=== PATIENT | male | born 1985 | race Caucasian/White ===

== ENCOUNTER 2022-10-29 18:03 | Emergency (ER) | payer OTHER ==
[2022-10-29] MEDS ORDERED: NA CHLORIDE 0.9% 1,000 ML ONE (18:41)
[2022-10-29 18:49] LABS: Absolute Lymphocytes (CBC) 2.4 K/uL (0.7-4.9); Hematocrit 47.1 % (39.6-49.0); Lymphocytes % 24.4 % (15.3-44.8); MCV 92.5 fL (80-100); MPV 6.9 fL (7.6-11.3); RBC Red Blood Cell Count 5.09 M/uL (4.33-5.43)
[2022-10-29 19:06] LABS: Albumin 3.9 g/dL (3.4-5.0); Bilirubin Total 0.5 mg/dL (0.2-1.0); Potassium 3.4 mEq/L (3.5-5.1)
--- NOTE | 2022-10-29 20:07 | RAD REPORT ---
EXAM DESCRIPTION: CT - Head Brain Wo Cont - 10/29/2022 7:33 pm CLINICAL HISTORY: HEADACHE COMPARISON: No comparisons TECHNIQUE: Noncontrast head CT images were obtained without IV contrast. Multiplanar reformats were generated and reviewed. All CT scans are performed using dose optimization technique as appropriate and may include automated exposure control or mA/KV adjustment according to patient size. FINDINGS: No intracranial hemorrhage, mass, or edema. Midline structures are unremarkable. Normal ventricular caliber for age. Munguia-white matter differentiation is preserved, without evidence of acute infarct. No abnormal extra- axial fluid collections. Right maxillary and right mastoid air cell opacification. No acute bony findings. IMPRESSION: No evidence of an acute intracranial process. Right maxillary and right mastoid air cell opacification. Please correlate clinically for evidence of acute sinusitis.
--- NOTE | 2022-10-29 20:17 | RAD REPORT ---
EXAM DESCRIPTION: CT - Abdomen Pelvis W Contrast - 10/29/2022 7:38 pm CLINICAL HISTORY: ABD PAIN COMPARISON: No comparisons TECHNIQUE: Thin cut axial CT imaging of the abdomen and pelvis was performed following intravenous a dministration of 95 mL Isovue 300. Multiplanar reformats were generated and reviewed. All CT scans are performed using dose optimization technique as appropriate and may include automated exposure control or mA/KV adjustment according to patient size. FINDINGS: No suspicious findings in the lung bases. The liver, spleen, and pancreas show no suspicious findings. Gallbladder and biliary tree are also wi thout suspicious finding. Symmetric renal function is seen with no hydronephrosis or suspicious renal mass. No dilated bowel loops or bowel wall thickening. No free air, free fluid or inflammatory stranding. N o hernia, mass or bulky lymphadenopathy. The urinary bladder is without significant finding. No suspicious bony findings. IMPRESSION: No acute intra-abdominal process.
--- NOTE | 2022-10-29 21:05 | ER ---
Nurse's Notes [facility] Name: Chi Seaman Age: 36 yrs Sex: Male : 1985 Arrival Date: 10/29/2022 Time: 18:03 Bed 5 Private MD: Diagnosis: Acute suppurative otitis media-right;Diarrhea, unspecified;Cough;Sinusitis Presentation: 10/29 18:12 Chief complaint: Spouse and/or significant other states: Hx of Right ear issues; pain vg1 and drainage with odor x 2 days, pt states dizziness and loss of hearing. Also stated N/V/D, states "i think its bc [place] Coronavirus screen: Vaccine status: Patient reports being unvaccinated. Client denies travel out of the [place] in the last 14 days. Ebola Screen: Patient negative for fever greater than or equal to 101.5 degrees Fahrenheit, and additional compatible Ebola Virus Disease symptoms Patient denies exposure to infectious person. Patient denies travel to an Ebola-affected area in the 21 days before illness onset. Initial Sepsis Screen: Does the patient meet any 2 criteria? HR > 90 bpm. Does the patient have a suspected source of infection? No. Patient's initial sepsis screen is negative. Risk Assessment: Do you want to hurt yourself or someone else? Patient reports no desire to harm self or others. Onset of symptoms was October 27, 2022. 18:12 Method Of Arrival: Ambulatory vg1 18:12 Acuity: QUINN 3 vg1 Triage Assessment: 18:15 General: Appears in no apparent distress. uncomfortable, Behavior is cooperative. Pain: vg1 Complains of pain in right ear Pain currently is 10 out of 10 on a pain scale. EENT: Reports difficulty swallowing pain in right ear Right ear drainage . Historical: - Allergies: 18:15 No Known Allergies; vg1 - PMHx: 18:15 PTSD; TBI; Nerve Damage; Chronic pain; vg1 - Immunization history:: Client reports having NOT received the Covid vaccine. - Social history:: Smoking status: Patient reports the use of cigarette tobacco products, smokes one pack cigarettes per day. Screenin:15 [facility] ED Fall Risk Assessment (Adult) History of falling in the last 3 months, bp including since admission No falls in past 3 months (0 pts). Abuse screen: Denies threats or abuse. Denies injuries from another. Nutritional screening: No deficits noted. Tuberculosis screening: No symptoms or risk factors identified. Assessment: 18:15 General: SEE TRIAGE NOTE. bp 19:22 Reassessment: Patient appears in no apparent distress at this time. Patient and/or bp family updated on plan of care and expected duration. Pain level reassessed. Patient is alert, oriented x 3, equal unlabored respirations, skin warm/dry/pink. 20:29 Reassessment: Patient appears in no apparent distress at this time. Patient and/or bp family updated on plan of care and expected duration. Pain level reassessed. Patient is alert, oriented x 3, equal unlabored respirations, skin warm/dry/pink. 21:15 Reassessment: Patient appears in no apparent distress at this time. Patient and/or bp family updated on plan of care and expected duration. Pain level reassessed. Patient is alert, oriented x 3, equal unlabored respirations, skin warm/dry/pink. Vital Signs: 18:12 BP 146 / 102; Pulse 108; Resp 18; Temp 98.4(O); Pulse Ox 96% on R/A; Height 5 ft. 9 in. vg1 ; Pain 10/10; 19:22 BP 127 / 76; Pulse 91; Resp 16; Pulse Ox 98% ; bp 20:29 BP 112 / 78; Pulse 89; Resp 16; Pulse Ox 99% ; bp 18:12 Pain Scale: Adult vg1 ED Course: 18:05 Patient arrived in ED. ts1 18:08 Camron Salinas PA is PHCP. cp 18:08 Camron Colon MD is Attending Physician. cp 18:15 Triage completed. vg1 18:15 Arm band placed on. vg1 18:15 Patient has correct armband on for positive identification. Bed in low position. Call bp light in reach. Side rails up X2. 18:27 Paxton Hernandez, BILLY is Primary Nurse. bp 18:41 Inserted saline lock: 20 gauge in right forearm, using aseptic technique. Blood bp collected. 19:35 CT Head Brain wo Cont In Process Unspecified. EDMS 19:40 CT Abd/Pelvis - IV Contrast Only In Process Unspecified. EDMS 20:25 Troponin HS Sent. bp 21:07 XRAY Chest (1 view) In Process Unspecified. EDMS 21:15 No provider procedures requiring assistance completed. IV discontinued, intact, bp bleeding controlled, No redness/swelling at site. Pressure dressing applied. Administered Medications: 18:41 Drug: NS 0.9% IV 1000 ml Route: IV; Rate: 1 bolus; Site: right forearm; bp 21:15 Drug: Ibuprofen PO 800 mg Route: PO; bp 21:15 Follow up: Response: Medication administered at discharge. bp 21:15 Drug: HYDROcodone-acetaminophen PO 5 mg-325 mg 1 tabs Route: PO; bp 21:15 Follow up: Response: Medication administered at discharge. bp Medication: 18:15 VIS not applicable for this client. bp Outcome: 21:05 Discharge ordered by MD. cp 21:15 Discharged to home ambulatory, with family. bp 21:15 Condition: stable 21:15 Discharge instructions given to patient, Instructed on discharge instructions, follow up and referral plans. medication usage, Demonstrated understanding of instructions, follow-up care, medications, Prescriptions given X 3. 21:16 Patient left the ED. bp Signatures: Dispatcher [employer] EDMS Camron Slainas PA PA cp Peltier, Brian, RN RN bp Lila Funes, RN RN vg1 Addis Ramos, PAS PAS ts1
--- NOTE | 2022-10-29 21:05 | EDPHYS ---
Physician Documentation [facility] Name: Chi Seaman Age: 36 yrs Sex: Male : 1985 Arrival Date: 10/29/2022 Time: 18:03 Bed 5 Private MD: ED Physician Camron Colon HPI: 10/29 18:35 This 36 yrs old Male presents to ER via Ambulatory with complaints of Ear Pain, cp Nausea/Vomiting/Diarrhea. 18:35 The patient presents with drainage, that is purulent. The complaints affect the right cp ear. Onset: The symptoms/episode began/occurred for over 1 month. 18:35 Patient is a 36-year-old male with a history of PTSD, TBI and chronic pain who presents cp to the emergency department with multiple complaints. He is accompanied by his who expressed concern that patient has had chronic problems with his right ear with drainage over the last several days, pain, headache. Patient also reports that he has been seen at the CT and was sent to the emergency room for a CT of his abdomen due to his history of diarrhea for the past several months. Patient reports mild abdominal pain today and diarrhea. Patient denies weight loss, and/or fever blood in stools. Patient is also requesting a CT of the head due to the chronic problems with his ear. Historical: - Allergies: 18:15 No Known Allergies; vg1 - PMHx: 18:15 PTSD; TBI; Nerve Damage; Chronic pain; vg1 - Immunization history:: Client reports having NOT received the Covid vaccine. - Social history:: Smoking status: Patient reports the use of cigarette tobacco products, smokes one pack cigarettes per day. ROS: 18:40 Constitutional: Negative for body aches, chills, fever, poor PO intake. cp 18:40 Eyes: Negative for injury, pain, redness, and discharge. cp 18:40 ENT: Positive for drainage from ear(s), ear pain, Negative for sore throat, difficulty swallowing, difficulty handling secretions. 18:40 Cardiovascular: Negative for chest pain, edema, palpitations. 18:40 Respiratory: Positive for cough, with no reported sputum, Negative for shortness of breath, wheezing. 18:40 Abdomen/GI: Positive for abdominal pain, nausea, vomiting, and diarrhea, Negative for anorexia, black/tarry stool, rectal bleeding. 18:40 Back: Negative for pain at rest, pain with movement. cp 18:40 : Negative for urinary symptoms, flank pain, testicular pain 18:40 Skin: Negative for rash. 18:40 Neuro: Positive for headache, Negative for altered mental status, numbness, syncope, weakness. 18:40 All other systems are negative. Exam: 18:45 Constitutional: The patient appears in no acute distress, alert, awake, cp non-diaphoretic, non-toxic, well developed, well nourished. 18:45 Head/Face: Normocephalic, atraumatic. cp 18:45 Eyes: Periorbital structures: appear normal, Conjunctiva: normal, no exudate, no injection, Sclera: no appreciated abnormality, Lids and lashes: appear normal, bilaterally. 18:45 ENT: External ear(s): are unremarkable, Ear canal(s): purulent discharge, that is minimal, in the right canal, TM's: rupture, on the right, with purulent discharge, Examination of the other ear shows no obvious abnormality, Nose: is normal, Mouth: Lips: moist, Oral mucosa: pink and intact, moist, Posterior pharynx: is normal, airway is patent, no erythema, no exudate. 18:45 Neck: ROM/movement: is normal, is supple, without pain, no range of motions limitations, no meningismus, no nuchal rigidity, Lymph nodes: no appreciated lymphadenopathy. 18:45 Chest/axilla: Inspection: normal, Palpation: is normal, no crepitus, no tenderness. 18:45 Cardiovascular: Rate: tachycardic, Rhythm: regular, Edema: is not appreciated, JVD: is not appreciated. 18:45 Respiratory: the patient does not display signs of respiratory distress, Respirations: normal, no use of accessory muscles, no retractions, labored breathing, is not present, Breath sounds: are clear throughout, no decreased breath sounds, no stridor, no wheezing. 18:45 Abdomen/GI: Inspection: abdomen appears normal, Bowel sounds: active, all quadrants, Palpation: abdomen is soft and non-tender, in all quadrants, rebound tenderness, is not appreciated, involuntary guarding, is not appreciated. 18:45 Back: CVA tenderness, is absent. 18:45 Neuro: Orientation: to person, place \T\ time. Mentation: able to follow commands, Motor: moves all fours, strength is normal, Gait: is steady. 20:23 ECG was reviewed by the Attending Physician. cp Vital Signs: 18:12 BP 146 / 102; Pulse 108; Resp 18; Temp 98.4(O); Pulse Ox 96% on R/A; Height 5 ft. 9 in. vg1 ; Pain 10/10; 19:22 BP 127 / 76; Pulse 91; Resp 16; Pulse Ox 98% ; bp 20:29 BP 112 / 78; Pulse 89; Resp 16; Pulse Ox 99% ; bp 18:12 Pain Scale: Adult vg1 MDM: 18:24 Patient medically screened. shannon 21:05 Data reviewed: vital signs, nurses notes, lab test result(s), radiologic studies, CT cp scan. 21:05 Differential diagnosis: otitis media, otitis externa, ruptured TM, foreign body, cp cerumen impaction. I considered the following discharge prescriptions or medication management in the emergency department Medications were administered in the Emergency Department. See MAR. Historians other than the Patient: Spouse/Significant Other: provides HPI. Care significantly affected by the following chronic conditions: chronic pain. Counseling: I had a detailed discussion with the patient and/or guardian regarding: the historical points, exam findings, and any diagnostic results supporting the discharge/admit diagnosis, lab results, radiology results, the need for outpatient follow up, for definitive care, an ENT specialist, a family practitioner, a public affairs manager, to return to the emergency department if symptoms worsen or persist or if there are any questions or concerns that arise at home. Response to treatment: the patient's symptoms have mildly improved after treatment, and as a result, I will discharge patient. 10/29 18:29 Order name: CBC with Diff; Complete Time: 19:54 cp 10/29 18:29 Order name: CMP; Complete Time: 19:54 cp 10/29 18:29 Order name: Lipase; Complete Time: 19:54 cp 10/29 18:29 Order name: Urinalysis w/ reflexes cp 10/29 19:55 Order name: Troponin HS; Complete Time: 20:56 cp 10/29 18:29 Order name: CT Abd/Pelvis - IV Contrast Only; Complete Time: 20:56 cp 10/29 18:29 Order name: CT Head Brain wo Cont; Complete Time: 20:56 cp 10/29 19:55 Order name: XRAY Chest (1 view) cp 10/29 19:55 Order name: EKG; Complete Time: 19:55 cp 10/29 18:29 Order name: IV Saline Lock; Complete Time: 18:41 cp 10/29 18:29 Order name: Labs collected and sent; Complete Time: 18:41 cp 10/29 19:55 Order name: EKG - Nurse/Tech; Complete Time: 20:25 cp EC:23 Rate is 70 beats/min. Rhythm is regular. [place] interval is normal. QRS interval is normal. cp QT interval is normal. Interpreted by me. Reviewed by me. Administered Medications: 18:41 Drug: NS 0.9% IV 1000 ml Route: IV; Rate: 1 bolus; Site: right forearm; bp 21:15 Drug: Ibuprofen PO 800 mg Route: PO; bp 21:15 Follow up: Response: Medication administered at discharge. bp 21:15 Drug: HYDROcodone-acetaminophen PO 5 mg-325 mg 1 tabs Route: PO; bp 21:15 Follow up: Response: Medication administered at discharge. bp Disposition Summary: 10/29/22 21:05 Discharge Ordered Location: Home cp Problem: an ongoing problem cp Symptoms: are unchanged cp Condition: Stable cp Diagnosis - Acute suppurative otitis media - right cp - Diarrhea, unspecified cp - Cough cp - Sinusitis cp Followup: cp - With: Private Physician - When: 2 - 3 days - Reason: Recheck today's complaints Discharge Instructions: - Discharge Summary Sheet cp - Food Choices to Help Relieve Diarrhea, Adult cp - Diarrhea, Adult cp - Sinusitis, Adult cp - Cough, Adult cp Forms: - Medication Reconciliation Form cp - Thank You Letter cp - Antibiotic Education cp - Prescription Opioid Use cp - [email or web address] cp Prescriptions: - Augmentin 875-125 mg Oral Tablet - take 1 tablet by ORAL route every 12 hours for 10 days; 20 tablet; Refills: 0, cp Product Selection Permitted - Zofran 4 mg Oral Tablet - take 1 tablet by ORAL route every 12 hours As needed; 20 tablet; Refills: 0, cp Product Selection Permitted - Diclofenac Sodium 75 mg Oral Tablet Sustained Release - take 1 tablet by ORAL route 2 times per day; 30 tablet; Refills: 0, Product cp Selection Permitted - Ciprodex 0.3-0.1 % Otic drops,suspension - instill 4 drops by OTIC route every 12 hours for 7 days , for ears ONLY; 1 cp unit; Refills: 0, Product Selection Permitted Signatures: Dispatcher [employer] EDCamron Duncan MD MD cha Page, Corey, PA PA cp Paxton Hernandez, RN RN Lila Garcia RN RN vg1 Corrections: (The following items were deleted from the chart) 21:06 21:05 Acute sinusitis, unspecified cp cp
[2022-10-29 21:17] LABS: Urine Bacteria None Seen /HPF (<20); Urine Bilirubin NEGATIVE (Negative); Urine Blood 1+ (Negative); Urine Clarity Clear (Clear); Urine Color Yellow (Yellow); Urine Glucose NEGATIVE (Negative); Urine Mucus Slight /HPF (None Seen); Urine Protein 1+ (Negative); Urine Urobilinogen 1+ (Normal)
[2022-10-29 21:18] LABS: Specific Gravity > 1.030 (1.005-1.030)
[2022-10-29] MEDS ORDERED: IBUPROFEN 400 MG TAB ONE (21:21)
[2022-10-29] MEDS ORDERED: HYDROCODONE/APAP 5/325 MG TAB ONE (21:22)
--- NOTE | 2022-10-29 21:29 | RAD REPORT ---
EXAM DESCRIPTION: Inge Single View10/29/2022 9:05 pm CLINICAL HISTORY: Chest pain;Cough COMPARISON: No comparisons TECHNIQUE: Portable AP view of the chest. FINDINGS: The lungs are clear. No pneumothorax or effusion. The cardiomediastinal contours are unre markable. IMPRESSION: No acute cardiopulmonary process.
[2022-10-29 21:33] VITALS: TEMP 98.4
[2022-10-29 21:34] VITALS: BP 112/78; O2SAT 99
--- NOTE | 2022-10-30 17:11 | EKG ---
Test Date: 2022-10-29 Test Time: 20:17:55 [employer] Machine Operator: ROCHELLE MEASUREMENT RESULTS: Intervals: Rate: 70 ID: [id number] QRSD: 100 QT: 406 QTc: 438 Joice: P: 44 ID: [id number] QRS: 4 T: 13 INTERPRETIVE STATEMENTS: Normal sinus rhythm Low voltage QRS Incomplete right bundle branch block Nonspecific T wave abnormality Abnormal ECG No previous ECG available for comparison Electronically Signed On 10-30-22 17:10:43 CDT by Manuel Azul
== END 2022-10-29 21:16 | disposition home or self-care (01) ==
LOC: ER 18:03
DX: H66.001 Acute suppurative otitis media without spontaneous rupture of ear drum, right ear (principal); R19.7 Diarrhea, unspecified; R05.9 Cough, unspecified; J32.9 Chronic sinusitis, unspecified; F17.210 Nicotine dependence, cigarettes, uncomplicated
CPT/HCPCS: 93005; 85025; 81001; 36415; 84484; 83690; 80053; 70450; 74177; 71045; 99284; Q9967; J7030

== ENCOUNTER 2022-11-02 22:13 | Emergency (ER) | payer OTHER ==
[2022-11-02] MEDS ORDERED: LORazepam 2 MG/ML VIAL ONE (22:47)
[2022-11-02] MEDS ORDERED: PANTOPRAZOLE 40 MG INJ ONE (22:47)
[2022-11-02 22:49] LABS: Absolute Lymphocytes (CBC) 2.6 K/uL (0.7-4.9); Hematocrit 46.3 % (39.6-49.0); MCV 91.8 fL (80-100); MPV 7.1 fL (7.6-11.3); RBC Red Blood Cell Count 5.04 M/uL (4.33-5.43)
[2022-11-02 23:02] LABS: Potassium 3.6 mEq/L (3.5-5.1); Troponin High Sensitivity 4.1 pg/mL (<58.9)
[2022-11-02 23:50] LABS: Barbiturates NEGATIVE (NEGATIVE); Benzodiazepines NEGATIVE (NEGATIVE); Cocaine NEGATIVE (NEGATIVE); METHAMPHETAM POSITIVE (NEGATIVE); Methadone NEGATIVE (NEGATIVE); Opiates NEGATIVE (NEGATIVE); Phencyclidine NEGATIVE (NEGATIVE); THC Cannibis POSITIVE (NEGATIVE)
[2022-11-03] MEDS ORDERED: ASPIRIN 81 MG CHEWABLE TABLET ONE (01:14)
[2022-11-03] MEDS ORDERED: FOLIC ACID 5 MG/ML VIAL ONE (01:15)
--- NOTE | 2022-11-03 02:42 | EDPHYS ---
Physician Documentation [facility] Name: Chi Seaman Age: 36 yrs Sex: Male : 1985 Arrival Date: 11/02/2022 Time: 22:13 Bed 15 Private MD: ED Physician Nicola Marcos HPI: 11/02 23:35 This 36 yrs old Male presents to ER via EMS with complaints of chest pain, palpitations.rn 23:35 The patient or guardian reports chest pain that is located primarily in the chest rn diffusely. The pain radiates to the left arm. Associated signs and symptoms: Pertinent positives: None. Pertinent negatives: abdominal pain, cough, shortness of breath, syncope, vomiting. The chest pain is described as stabbing. Duration: The patient or guardian reports multiple episodes, that are intermittent. Modifying factors: The symptoms are alleviated by nothing. the symptoms are aggravated by emotionally stressful situations. Severity of pain: At its worst the pain was moderate in the emergency department the pain is unchanged. The patient has experienced similar episodes in the past. The patient has not recently seen a physician. Pt reports arrested, taken to penitentiary, was having argument with /significant other. Pt with baseline left arm and leg tingling/weakness from previous injury and back problems. Reports increased burning to left arm with the chest pain that concerned him. Denies drug use. Had some ETOH today prior to being arrested. . Historical: - Allergies: 22:23 No Known Allergies; jb4 - Home Meds: 22:23 Trazadone [Active]; gabapentin oral [Active]; jb4 - PMHx: 22:23 Chronic pain; PTSD; Nerve damage; TBI; jb4 - PSHx: 22:23 None; jb4 - Immunization history:: Adult Immunizations up to date. - Social history:: Smoking status: Patient denies any tobacco usage or history of. - Family history:: not pertinent. - Hospitalizations: : No recent hospitalization is reported. ROS: 23:35 Constitutional: Negative for fever, chills, and weight loss, Eyes: Negative for injury, rn pain, redness, and discharge, Neck: Negative for injury, pain, and swelling, Cardiovascular: + chest pain Respiratory: Negative for shortness of breath, cough, wheezing, and pleuritic chest pain, Abdomen/GI: Negative for abdominal pain, nausea, vomiting, diarrhea, and constipation, Back: Negative for injury and pain, MS/Extremity: Negative for injury and deformity, Skin: Negative for injury, rash, and discoloration, Neuro: Negative for headache, and seizure Exam: 23:35 Constitutional: This is a well developed, well nourished patient who is awake, alert, rn agitated but answers all questions. Head/Face: Normocephalic, atraumatic. Chest/axilla: Normal chest wall appearance and motion. Nontender with no deformity. No lesions are appreciated. Cardiovascular: Regular rate and rhythm. No pulse deficits. Respiratory: No increased work of breathing, no retractions or nasal flaring Abdomen/GI: Soft, non-tender Skin: Warm, dry MS/ Extremity: Pulses equal, no cyanosis. Neuro: Awake and alert, GCS 15, oriented to person, place, time, and situation. Cranial nerves II-XII grossly intact. Motor strength 5/5 RUE/RLE, 4/5 strength LUE and 4+/5 strength LLE. Some decreased sensation to left arm. 23:43 ECG was reviewed by the Attending Physician. rn Vital Signs: 22:19 BP 125 / 78; Pulse 79; Resp 23; Temp 99(O); Pulse Ox 100% on R/A; Weight 99.79 kg (R); jb4 Height 5 ft. 9 in. ; 23:31 BP 120 / 70; Pulse 77; Resp 21; Pulse Ox 97% on R/A; 4 11/03 00:39 BP 134 / 90; Pulse 75; Resp 28; Pulse Ox 98% on R/A; 4 01:30 BP 115 / 71; Pulse 88; Resp 16; Pulse Ox 97% on R/A; jb4 02:45 BP 118 / 65; Pulse 84; Resp 16; Pulse Ox 97% on R/A; jb4 11/02 22:19 Body Mass Index 32.49 (99.79 kg, 175.26 cm) [facility] NIH Stroke Scale Scores: 01:27 NIHSS Score: 1 [facility] MDM: 11/02 22:15 Patient medically screened. rn 11/03 00:17 ED course: Pt improved after ativan, now less agitated. CT head per radiology shows rn possible abnormality in CT head, requests CTA, CTA head and neck ordered. Patient now out of cuffs and reports last known normal "around 5PM". States during argument started to feel burning sensation and then some weakness to left arm and some difficulty walking at the time, was arrested at officer on scene at approx 5:15pm, verified with other officer here, taken to penitentiary, then brought here later. More pronounced weakness on exam now. 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 Given new details of presentation and timing, abnormality of CT head could indicate CVA, but even on initial presentation to ER, pt out of TNKase window, as presented > 5 hours post last known normal.. 00:22 ED course: If CTA shows LVO, will have to transfer for possible intravascular distance learning unit leader. . 00:24 ED course: Nurse noted results from radiology at 0002 for me as I was in another room rn performing a procedure. Asked them to place order for CTA. . 00:52 ED course: CT still has not performed CTA, called them and they will perform it soon.. rn 01:38 ED course: Currently NIH 1, still mild weakness LUE coil strapper strength but no drift, and + rn numbness LUE. . 02:02 ED course: Still no read or updates from radiology. Pt using arm and leg to reposition rn himself in bed, does not appear as weak as before. . 02:39 Differential diagnosis: acute myocardial infarction, acute pericarditis, anxiety, rn costochondritis, pleurisy, pneumonia, pneumothorax, CVA, acute stress reaction, drug adverse effect. Data reviewed: vital signs, nurses notes, lab test result(s), EKG, radiologic studies, CT scan, and as a result, I will discharge patient. Counseling: I had a detailed discussion with the patient and/or guardian regarding: the historical points, exam findings, and any diagnostic results supporting the discharge/admit diagnosis, lab results, radiology results, the need for outpatient follow up, to return to the emergency department if symptoms worsen or persist or if there are any questions or concerns that arise at home. Response to treatment: the patient's symptoms have markedly improved after treatment, the patient's condition has returned to base line, and as a result, I will discharge patient. Special discussion: I discussed with the patient/guardian in detail that at this point there is no indication for admission to the hospital. It is understood, however, that if the symptoms persist or worsen the patient needs to return immediately for re-evaluation. ED course: Pt back to baseline. CTA head/neck without acute findings, was not true finding on CT head. Pt states his left arm tingling and mild weakness is at his baseline. States this has happened multiple times in past, usually after or during argument with . . 11/02 22:16 Order name: Basic Metabolic Panel; Complete Time: 23:42 rn 11/02 22:16 Order name: CBC with Diff; Complete Time: 23:42 rn 11/02 22:16 Order name: Troponin HS; Complete Time: 23:42 rn 11/02 22:16 Order name: ETOH Level; Complete Time: 23:42 rn 11/02 22:16 Order name: Urine Drug Screen; Complete Time: 00:33 rn 11/02 22:16 Order name: XRAY Chest (1 view) rn 11/02 22:49 Order name: CT Head C Spine rn 11/03 00:04 Order name: CT Head Angio sb4 11/03 00:04 Order name: CT Neck Angio 4 11/02 22:16 Order name: EKG; Complete Time: 22:16 rn 11/02 22:16 Order name: Cardiac monitoring; Complete Time: 22:43 rn 11/02 22:16 Order name: EKG - Nurse/Tech; Complete Time: 22:43 rn 11/02 22:16 Order name: IV Saline Lock; Complete Time: 22:43 rn 11/02 22:16 Order name: Labs collected and sent; Complete Time: 22:43 rn 11/02 22:16 Order name: O2 Per Protocol; Complete Time: 22:43 rn 11/02 22:16 Order name: O2 Sat Monitoring; Complete Time: 22:43 rn EC/13 23:43 Rate is 76 beats/min. Rhythm is regular. QRS [place] is Normal. SD interval is normal. QRS rn interval is normal. QT interval is normal. No Q waves. T waves are Normal. No ST changes noted. Clinical impression: Normal ECG. Interpreted by me. Reviewed by me. Administered Medications: 22:42 Drug: Pantoprazole IVP 40 mg Route: IVP; Site: right antecubital; jb4 22:43 Drug: Ativan IVP 0.5 mg Route: IVP; Site: right antecubital; jb4 11/03 01:26 Drug: Aspirin PO Chewable Tablet 324 mg Route: PO; jb4 01:26 Drug: foLIC Acid IVPB 1 mg Route: IVPB; Site: right antecubital; jb4 Disposition Summary: 11/03/22 02:41 Discharge Ordered Location: Home rn Problem: new rn Symptoms: have improved rn Condition: Stable rn Diagnosis - Acute stress reaction rn - Chest pain, unspecified rn Followup: rn - With: Private Physician - When: As needed - Reason: Recheck today's complaints, Re-evaluation by your physician Discharge Instructions: - Discharge Summary Sheet rn - Nonspecific Chest Pain, Adult rn - Stress, Adult rn Forms: - Medication Reconciliation Form rn - Thank You Letter rn - Antibiotic pattern molder - Prescription Opioid Use rn - Patient Portal Instructions rn NIH Stroke Scale - NIH Stroke Score Date: 11/03/2022 Time: : Total Score = 1 10. Dysarthria (speech clarity - read or repeat words) - 0(Normal) 11. Extinction and Inattention (visual/tactile/auditory/spatial/personal) - 0(No abnormality) 1a. Level of Consciousness (LOC) - 0(Alert) 1b. Level of Consciousness (LOC) (Month \\T\\ Age) - 0(Both) 1c. LOC Commands (Open \\T\\ Closes Eyes/Professor Of Theatre) - 0(Both) 2. Best Gaze (Lateral Gaze Paresis) - 0(Normal) 3. Visual Field Loss - 0(No visual loss) 4. Facial Palsy - 0(Normal) 5a. Left Arm: Motor (10-second hold) - 0(No drift) 5b. Right Arm: Motor (10-second hold) - 0(No drift) 6a. Left Leg: Motor (5-second hold - always test supine) - 0(No drift) 6b. Right Leg: Motor (5-second hold - always test supine) - 0(No drift) 7. Limb Ataxia (finger/nose \\T\\ heel/peterson - test with eyes open) - 0(Absent) 8. Sensory Loss (pinprick arms/legs/face) - 1(Mild to moderate loss) 9. Best Language: Aphasia (description/naming/reading) - 0(No aphasia) Initials: jb4 Signatures: Dispatcher [employer] Nicola Ji MD MD rn Bryson, James, RN RN jb4 Corrections: (The following items were deleted from the chart) 11/02 23:41 23:35 Constitutional: This is a well developed, well nourished patient who is rn awake, alert, agitated but answers all questions. Head/Face: Normocephalic, atraumatic. Cardiovascular: Regular rate and rhythm. No pulse deficits. Respiratory: No increased work of breathing, no retractions or nasal flaring Abdomen/GI: Soft, non-tender Skin: Warm, dry MS/ Extremity: Pulses equal, no cyanosis. Neuro: Awake and alert, GCS 15, oriented to person, place, time, and situation. Cranial nerves II-XII grossly intact. Motor strength 5/5 in all extremities. Some decreased sensation to left arm. rn 11/03 00:13 11/02 23:35 Constitutional: This is a well developed, well nourished patient rn who is awake, alert, agitated but answers all questions. Head/Face: Normocephalic, atraumatic. Chest/axilla: Normal chest wall appearance and motion. Nontender with no deformity. No lesions are appreciated. Cardiovascular: Regular rate and rhythm. No pulse deficits. Respiratory: No increased work of breathing, no retractions or nasal flaring Abdomen/GI: Soft, non-tender Skin: Warm, dry MS/ Extremity: Pulses equal, no cyanosis. Neuro: Awake and alert, GCS 15, oriented to person, place, time, and situation. Cranial nerves II-XII grossly intact. Motor strength 5/5 in all extremities. Some decreased sensation to left arm. rn
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
[2022-11-03 05:37] VITALS: TEMP 99
[2022-11-03 05:42] VITALS: O2SAT 97
[2022-11-03 05:44] VITALS: BP 118/65
--- NOTE | 2022-11-03 16:33 | RAD REPORT ---
EXAM DESCRIPTION: CT - Head C Spine Mpr Wo Con - 11/03/2022 6:29 am ADDENDUM #1 THIS REPORT CONTAINS FINDINGS THAT MAY BE CRITICAL TO PATIENT CARE: Notification that the physician w as unable to speak on the phone occurred at 11/03/2022 12:02 AM CDT. I discussed the findings with RN JOSEMANUEL CHIN who agreed to take the results on the phone on behalf of the physician, and acknowledges t heir critical nature. Electronically signed by: Mirna Lemons MD 11/03/2022 12:05 AM CDT End of Addendum EXAM DESCRIPTION: CT Head and Cervical Spine Without Intravenous Contrast CLINICAL HISTORY: The patient is 36 years old and is Male; LEFT ARM NUMBNESS TECHNIQUE: Axial computed tomography images of the head/brain and cervical spine without intravenous contrast. Sagittal and coronal reformatted images were created and reviewed. This CT exam was pe rformed using one or more of the following dose reduction techniques: automated exposure control, a djustment of the mA and/or kV according to patient size, and/or use of iterative reconstruction techn ique. COMPARISON: CT of the head October 29, 2022 FINDINGS: BRAIN: Unremarkable. No hemorrhage. No significant white matter disease. No edema. VENTRICLES: Unremarkable. No ventriculomegaly. SKULL: No acute fracture. SINUSES: Mucoperiosteal thickening of right maxillary sinus is present. MASTOID AIR CELLS: Fluid is present within the right mastoid air cells. Left mastoid air cells ar e clear. VERTEBRAE: The vertebral body heights and alignment are maintained. No acute fracture. DISCS/SPINAL CANAL/NEURAL FORAMINA: Intervertebral disc space narrowing with anterior osteophyte formation of C3-C7 is present. There is no significant canal stenosis or neural foraminal narrowing. SOFT TISSUES: The soft tissues are normal. VASCULATURE: Questionable minimal hyperdensity within the right middle cerebral artery is noted. LUNG APICES: Unremarkable as visualized. OTHER FINDINGS: The patient is slightly tilted in the scanner. IMPRESSION: 1. Questionable hyperdensity within the right middle cerebral artery which could be se condary to an acute thrombus. Recommend further evaluation with a CTA of the head. 2. No acute intracranial hemorrhage. 3. Minimal spondylosis of the cervical spine without acute findings. Electronically signed by: Mirna Lemons MD 11/02/2022 11:54 PM CDT ADDENDUM #1 THIS REPORT CONTAINS FINDINGS THAT MAY BE CRITICAL TO PATIENT CARE: Notification that the physician w as unable to speak on the phone occurred at 11/03/2022 12:02 AM CDT. I discussed the findings with BILLY CHIN who agreed to take the results on the phone on behalf of the physician, and acknowledges t heir critical nature. Electronically signed by: Mirna Lemons MD 11/03/2022 12:05 AM CDT End of Addendum ADDENDUM #1 THIS REPORT CONTAINS FINDINGS THAT MAY BE CRITICAL TO PATIENT CARE: Notification that the physician w as unable to speak on the phone occurred at 11/03/2022 12:02 AM CDT. I discussed the findings with BILLY CHIN who agreed to take the results on the phone on behalf of the physician, and acknowledges t heir critical nature. Electronically signed by: Mirna Lemons MD 11/03/2022 12:05 AM CDT End of Addendum EXAM DESCRIPTION: CT Head and Cervical Spine Without Intravenous Contrast CLINICAL HISTORY: The patient is 36 years old and is Male; LEFT ARM NUMBNESS TECHNIQUE: Axial computed tomography images of the head/brain and cervical spine without intravenous contrast. Sagittal and coronal reformatted images were created and reviewed. This CT exam was pe rformed using one or more of the following dose reduction techniques: automated exposure control, a djustment of the mA and/or kV according to patient size, and/or use of iterative reconstruction techn ique. COMPARISON: CT of the head October 29, 2022 FINDINGS: BRAIN: Unremarkable. No hemorrhage. No significant white matter disease. No edema. VENTRICLES: Unremarkable. No ventriculomegaly. SKULL: No acute fracture. SINUSES: Mucoperiosteal thickening of right maxillary sinus is present. MASTOID AIR CELLS: Fluid is present within the right mastoid air cells. Left mastoid air cells ar e clear. VERTEBRAE: The vertebral body heights and alignment are maintained. No acute fracture. DISCS/SPINAL CANAL/NEURAL FORAMINA: Intervertebral disc space narrowing with anterior osteophyte formation of C3-C7 is present. There is no significant canal stenosis or neural foraminal narrowing. SOFT TISSUES: The soft tissues are normal. VASCULATURE: Questionable minimal hyperdensity within the right middle cerebral artery is noted. LUNG APICES: Unremarkable as visualized. OTHER FINDINGS: The patient is slightly tilted in the scanner. IMPRESSION: 1. Questionable hyperdensity within the right middle cerebral artery which could be se condary to an acute thrombus. Recommend further evaluation with a CTA of the head. 2. No acute intracranial hemorrhage. 3. Minimal spondylosis of the cervical spine without acute findings. Electronically signed by: Mirna Lemons MD 11/02/2022 11:54 PM CDT Due to temporary technical issues with the PACS/Fluency reporting system, reports are being signed by the in house radiologists without review as a courtesy to insure prompt reporting. The interpreting radiologist is fully responsible for the content of the report.
--- NOTE | 2022-11-03 16:48 | RAD REPORT ---
EXAM DESCRIPTION: CT - Head angio - 11/03/2022 6:32 am CLINICAL HISTORY: 36 years, Male, PAIN COMPARISON: None. TECHNIQUE: Axial CTA images of the head and neck obtained following the uncomplicated intravenous ad ministration of iodinated contrast. 3-D/MIP reformatted images available. This exam was performed acc ording to our departmental dose-optimization program, which includes automated exposure control, adju stment of the mA and/or kV according to patient size and/or use of iterative reconstruction technique . FINDINGS: CTA head: In the anterior circulation, the intracranial internal carotid arteries have normal course. The inter nal carotid arteries bifurcate into patent A1 and M1 segments of the anterior and middle cerebral art eries respectively. No evidence of flow-limiting stenosis, aneurysm, occlusion, or dissection in the anterior circulation. The anterior communicating artery is patent. In the posterior circulation, the intracranial vertebral arteries combine to form a patent basilar ar jovanny. Dominant right vertebral artery. The basilar artery bifurcates into patent P1 segments of the p osterior cerebral artery. No evidence of stenosis, aneurysm, occlusion, or dissection in the posterio r circulation. No definite acute intracranial abnormality identified. No acute abnormality of the osseous calvarium. Paranasal sinuses and mastoid air cells are well aerated. CTA NECK: The aortic arch has normal anatomic configuration. The origin of the great vessels are patent. The right common carotid artery is patent and bifurcates into patent internal and external carotid ar teries. 0% stenosis by NASCET criteria. No evidence of occlusion or dissection. The left common carotid artery is patent and bifurcates into patent internal and external carotid art eries. 0% stenosis by NASCET criteria. No evidence of occlusion or dissection. The cervical vertebral arteries are patent throughout their course. Dominant right vertebral artery. No evidence of occlusion, stenosis, or dissection. No definite acute abnormalities in the neck soft tissues. No apical pneumothorax. No acute osseous ab normalities. Mild endplate spondylosis of the cervical spine. IMPRESSION: 1. No evidence of stenosis, occlusion, or aneurysm in the intracranial arterial circul ation. 2. No evidence of stenosis/occlusion involving the cervical carotid or vertebral arteries. Electronically signed by: Chi Lucas 11/03/2022 2:21 AM CDT Due to temporary technical issues with the PACS/Fluency reporting system, reports are being signed by the in house radiologists without review as a courtesy to insure prompt reporting. The interpreting radiologist is fully responsible for the content of the report.
--- NOTE | 2022-11-03 17:24 | RAD REPORT ---
EXAM DESCRIPTION: RAD - Chest Single View - 11/02/2022 10:53 pm CLINICAL HISTORY: The patient is 36 years old and is Male; CHEST PAIN TECHNIQUE: Frontal view of the chest. COMPARISON: No relevant prior studies available. FINDINGS: Lungs: Unremarkable. No consolidation. Pleural space: Unremarkable. No pneumothorax. Heart: Unremarkable. Mediastinum: Unremarkable. Bones/joints: Unremarkable. IMPRESSION: No acute findings in the chest. Electronically signed by: Beto Mulligan MD 11/02/2022 11:42 PM CDT Due to temporary technical issues with the PACS/Fluency reporting system, reports are being signed by the in house radiologists without review as a courtesy to insure prompt reporting. The interpreting radiologist is fully responsible for the content of the report.
--- NOTE | 2022-11-06 11:53 | EKG ---
Test Date: 2022-11-02 Test Time: 22:31:34 Traffic Reporter: PUNEET MEASUREMENT RESULTS: Intervals: Rate: 76 WA: 140 QRSD: 96 QT: 396 QTc: 445 [place]: P: 29 WA: 140 QRS: 21 T: 57 INTERPRETIVE STATEMENTS: Normal sinus rhythm Normal ECG Compared to ECG 10/29/2022 20:17:55 Incomplete right bundle-branch block no longer present T-wave abnormality no longer present Electronically Signed On 11-06-22 11:47:50 CDT by Manuel Azul
== END 2022-11-03 03:12 | disposition home or self-care (01) ==
LOC: ER 22:13
DX: F43.0 Acute stress reaction (principal); Z87.820 Personal history of traumatic brain injury
CPT/HCPCS: 93005; 85025; 80048; 36415; 84484; 80307; 70450; 72125; 70496; 70498; 71045; 96375; 96374; 99285; 82077; Q9967; C9113